=== PATIENT | female | born 1995 | race Caucasian/White ===

== ENCOUNTER 2024-07-29 18:14 | Emergency (ER) | payer MEDICAID, OTHER ==
[~2024-07-29] VITALS: Ht 154.9 cm; Wt 78.7 kg
[~2024-07-29 18:14] MED LIST: IBUP-1454 PO; METH-1182 PO
[2024-07-29 18:33] VITALS: BP 103/77; PULSE 76; RESP 16; TEMP 99.6; O2SAT 98
[2024-07-29] MEDS ORDERED: IBUP-1456 PO (20:03)
[2024-07-29] MEDS: KETOROLAC TROMETH 60MG/2ML VIAL IM ONE (20:19)
== END 2024-07-29 20:24 | disposition home or self-care (01) ==
LOC: ER 18:14
DX: S83.91XA Sprain of unspecified site of right knee, initial encounter (principal); Z98.51 Tubal ligation status; Z79.1 Long term (current) use of non-steroidal anti-inflammatories (NSAID); W01.0XXA Fall on same level from slipping, tripping and stumbling without subsequent striking against object, initial encounter; Y93.89 Activity, other specified; Y92.89 Other specified places as the place of occurrence of the external cause; Y99.8 Other external cause status
CPT/HCPCS: 29505; 73562; 96372; 99283; J1885